=== PATIENT | female | born 1995 | race Caucasian/White ===

== ENCOUNTER 2022-08-28 12:01 | Emergency (ER) | payer OTHER ==
[2022-08-28 13:09] LABS: CHLORIDE,CL 103 mmol/L (98-107); SODIUM,NA 140 mmol/L (136-145)
[2022-08-28 13:14] LABS: ANION GAP 12.8 mmol/L (5-15); ESTIMATED GFR 90 mL/min (>=60)
== END 2022-08-28 13:30 | disposition home or self-care (01) ==
LOC: VM.ED 12:01
DX: R00.2 Palpitations (principal)
CPT/HCPCS: 36415; 80053; 82550; 83615; 83735; 84443; 84484; 85025; 93005; 99285